=== PATIENT | male | born 1980 | race Caucasian/White ===

== ENCOUNTER 2019-06-17 14:42 | Emergency (ER) | payer BC, SELFPAY ==
[2019-06-17 15:35] VITALS: BP 134/83; PULSE 96; RESP 20; TEMP 36.8; O2SAT 99
--- NOTE | 2019-06-17 16:07 | ECG_ITS ---
Measurements Intervals [place] Rate: 79 P: 55 CA: 162 QRS: 43 QRSD: 94 T: 50 QT: 349 QTc: 401 Interpretive Statements SINUS RHYTHM NORMAL ECG Electronically Signed On 06-17-2019 17:35:45 FOOD SERVICE CASHIER by Camron Mari D.O.
--- NOTE | 2019-06-17 16:11 | ED.GENADULT ---
HPI - General Adult General Chief complaint: Chest Pain Stated complaint: cough and chest pain Time Seen by Provider: 06/17/19 16:04 Source: patient and RN notes reviewed Mode of arrival: ambulatory Limitations: no limitations History of Present Illness HPI narrative: Patient presents today complaining of left-sided chest pain x3-4 days. States symptoms occasionally radiate to the shoulder and sternum, but not consistently. Describes the pain as a dull ache. Denies any additional symptoms to include nausea, vomiting, sweats or chills, shortness of breath, numbness or tingling in the extremities, Abnormal swelling. Denies any modifying factors. He has tried no medication for symptoms prior to arrival. Reports strong familial history of ID, hypercholesterolemia, and CABG. States he was sick approximately 1 week ago with upper respiratory symptoms, but is no longer symptomatic.Pain does not increase with deep breath or movement. MD complaint: Chest pain Related Data Home Medications Medication Instructions Recorded Confirmed No Home Medications 06/17/19 06/17/19 Allergies Allergy/AdvReac Type Severity Reaction Status Date / Time No Known Allergies Allergy Verified 06/17/19 16:05 Review of Systems Review of Systems: Narrative: CONSTITUTIONAL: Denies body aches, fever, chills, or sweats. EYES: Denies visual changes, redness, or discharge. ENT: Denies rhinorrhea, congestion, sore throat, or otalgia. CARDIOVASCULAR: Denies palpitations, or edema.+Chest pain RESPIRATORY: Denies cough or dyspnea. GASTROINTESTINAL: Denies abdominal pain, nausea, vomiting, or diarrhea. GENITOURINARY: Denies dysuria or hematuria. SKIN: Denies rash, itching, or wounds. MUSCULOSKELETAL: Denies back pain, joint pain, or myalgia. NEUROLOGIC: Denies headache, numbness, tingling, or weakness. PSYCH: Denies depression or anxiety. [facility] Family History Family History (Updated 06/17/19 @ 16:13 by Collette Powell, [facility], ) Grandparent Acute myocardial infarction Grandparent Acute myocardial infarction Comments At time of signature, I have reviewed and agree with nursing past medical, surgical, social and family history unless otherwise noted. Please see nursing chart for further information. Exam Narrative: Exam Narrative: GENERAL: Well-appearing, well-nourished, and in no acute distress. HEAD: Normocephalic, atraumatic. EYES: EOMI. No redness or drainage. Conjunctivae normal. ENT: Mucous membranes pink and moist. NECK: Normal AROM. Supple. No lymphadenopathy. CHEST: No respiratory distress. Clear to auscultation.Chest is nontender. HEART: Regular rate and rhythm. No murmur appreciated. Normal peripheral pulses. ABDOMEN: Soft, nontender, nondistended, normal active bowel sounds. MUSCULOSKELETAL: No bony tenderness. EXTREMITIES: Normal range of motion. No edema. SKIN: Warm, dry, no rash. NEURO: No focal deficits. Alert and oriented x3. Gait steady. PSYCH: Normal affect. No signs of depression or anxiety. Course Vital Signs Vital signs: Vital Signs Temperature 98.2 F 06/17/19 15:35 Pulse Rate 96 06/17/19 15:35 Respiratory Rate 06/17/19 15:35 Blood Pressure 134/83 06/17/19 15:35 Pulse Oximetry 99 06/17/19 15:35 Temperature 98.2 F 06/17/19 15:35 Pulse Rate 96 06/17/19 15:35 Respiratory Rate 06/17/19 15:35 Blood Pressure 134/83 06/17/19 15:35 Pulse Oximetry 99 06/17/19 15:35 Reviewed Transfer Transfered to: Other ([facility]) Transportation: Other (Private vehicle) Transfer rationale: Chest pain Accepting physician: Teresa Medical Decision Making Differential Diagnosis Differential Diagnosis: ID, musculoskeletal chest pain, pleurisy, PE Vital Signs Vital Signs: Vital Signs Temperature 98.2 F 06/17/19 15:35 Pulse Rate 96 06/17/19 15:35 Respiratory Rate 06/17/19 15:35 Blood Pressure 134/83 06/17/19 15:35 Pulse Oximetry 99 06/17/19 15:35 [place]
== END 2019-06-17 16:22 | disposition short-term general hospital (02) ==
PROVIDERS: Emergency Provider Nurse Practitioner
DX: R07.9 Chest pain, unspecified (principal)
CPT/HCPCS: 93005; 99213; G0463

== ENCOUNTER 2019-06-18 19:20 | Emergency (ER) | payer BC, SELFPAY ==
--- NOTE | ~2019-06-18 | XR_ITS ---
EXAMINATION: XR chest 2V 06/18/2019 19:52 INDICATION: Left-sided chest pain. High heart rate for 3 days. PROCEDURE: 2 view chest COMPARISON: No prior studies for comparison. FINDINGS: The lungs are clear. The cardiomediastinal silhouette is within normal limits. There are no pleural effusions. There is no pneumothorax suspected. IMPRESSION: 1: NO ACUTE CARDIOPULMONARY DISEASE. Reviewed, dictated and finalized at location A. PULLER
[2019-06-18 19:23] VITALS: BP 145/97; PULSE 104; RESP 20; TEMP 36.7; O2SAT 100
--- NOTE | 2019-06-18 19:33 | ECG_ITS ---
Measurements Intervals [place] Rate: 102 P: 36 NC: 130 QRS: 28 QRSD: 95 T: 41 QT: 322 QTc: 419 Interpretive Statements SINUS TACHYCARDIA CANNOT RULE OUT SEPTAL INFARCT, AGE INDETERMINATE ABNORMAL ECG Electronically Signed On 06-18-2019 20:51:25 SEDIMENT REMEDIATION CONSULTANT by Camron Mari D.O.
[2019-06-18] MEDS: ASPIRIN 81 MG CHEWABLE TABLET 324 MG PO (19:43)
[2019-06-18 19:53] LABS: Basophils Absolute Auto 0.1 K/mm3 (0.0-0.1); Basophils Percent Auto 1.2 % (0.2-1.2); Eosinophils Absolute Auto 0.1 K/mm3 (0-0.3); Eosinophils Percent Auto 1.1 % (0-4.4); Hematocrit 47.2 % (42.0-52.0); Hemoglobin 15.5 g/dL (14.0-18.0); Immature Granulocyte Absolute 0.05 K/mm3 (0.00-0.031); Immature Granulocyte Percent A 0.5 % (0-0.5); Lymphocytes Absolute Auto 3.81 K/mm3 (0.9-3.2); Lymphocytes Percent Auto 38.2 % (18.3-44.2); Mean Corpuscular HGB Conc 32.8 g/dl (32-36); Mean Corpuscular Hemoglobin 27.6 pg (26-34); Mean Corpuscular Volume 84.1 fl (80-100); Mean Platelet Volume 10.2 fl (7.4-10.4); Monocytes Absolute Auto 0.7 K/mm3 (0.1-0.6); Monocytes Percent Auto 7.3 % (2.6-8.5); Neutrophils Absolute Auto 5.2 K/mm3 (1.3-6.7); Neutrophils Percent Auto 51.7 % (45.5-73.1); Platelet Count Result 350 k/mm3 (150-375); Red Blood Count 5.61 M/mm3 (4.6-6.20)
--- NOTE | 2019-06-18 20:00 | ED.CHESTPAIN ---
HPI - Chest Pain General Chief Complaint: Chest Pain Stated Complaint: chest pain Time Seen by Provider: 06/18/19 19:54 Source: patient Mode of arrival: ambulatory Limitations: no limitations History of Present Illness HPI narrative: A 38 y/o male presents to the ED with c/o left sided CP. Pt states that for the last 4 days he has had intermittent dull and achy chest pain. He notes that the CP is alleviated with activity, but denies any aggravating factors. [facility] - which was normal. At that urgent care appointment, he was advised to come to the ED for further evaluation. Today, the patient was standing at an event and notes that his watch alerted him that he had a high heart rate, so he decided to come to the ED. He denies any trouble with activity. Pt had a recent vasectomy, and is not released for heavy activity by his surgeon. He is a non-smoker. Pt denies N/V/D, SOB, and fever. complaint: chest pain (Left sided) Onset (ago): day(s) (4) Timing of current episode: episodic Pain location: left chest Quality: aching and dull Relieving factors: movement (Activity) Exacerbating factors: nothing Associated symptoms: other (None) Related Data Home Medications Medication Instructions Recorded Confirmed No Home Medications 06/17/19 06/17/19 Allergies Allergy/AdvReac Type Severity Reaction Status Date / Time No Known Allergies Allergy Verified 06/18/19 19:32 Review of Systems Review of Systems: All systems reviewed & are unremarkable except as noted in HPI and below Constitutional: Constitutional: Denies fever(s) Cardiovascular: Cardiovascular: Reports chest pain (Left sided) Respiratory: Respiratory: Denies dyspnea Gastrointestinal: Gastrointestinal: Denies diarrhea, Denies nausea and Denies vomiting [facility] Past Medical History Medical History (Updated 06/18/19 @ 23:46 by Roshan Greco MD) Ulcerative colitis Surgical History Surgical History (Updated 06/18/19 @ 20:34 by Amanda Mendieta) History of appendectomy History of vasectomy Family History Family History Grandparent Acute myocardial infarction Grandparent Acute myocardial infarction Social History Social History (Updated 02/18/20 @ 20:34 by Amanda Mendieta) Smoking status: Never smoker Exam Const: General: healthy appearing, no acute distress and well developed Nutritional Appearance: well nourished Orientation/consciousness: patient oriented x3 (alert) and Other orientation findings (Alert) Limitations: no limitations HENMT: Head: normocephalic and atraumatic Ears: external ears normal General nose exam: No nasal discharge present and no epistaxis Face and sinus: face symmetric Mouth: Yes lip normal, Yes tongue normal and Yes moist mucous membranes Throat: other (No exudate, no erythema) Eyes: Conjunctivae: conjunctivae normal Sclera: sclerae normal EOM: EOMs intact bilaterally Neck: Neck: full ROM, no lymphadenopathy and supple Thyroid: thyroid normal Chest: Chest palpation & inspection: no tenderness Resp: Effort & Inspection: normal respiratory effort Auscultation: clear to auscultation bilaterally, no rales, no rhonchi, no wheezes and other (breath sounds equal) Cardio: Rate: regular rate Rhythm: regular rhythm Heart sounds: no gallops and no murmurs GI: Inspection: non-distended GI Palp: No abdominal tenderness and Yes Soft to palpation Auscultation: other (bowel sounds present) : General: Yes no CVA tenderness Back/Spine/Pelvis: Back: no CVA tenderness Thoracic/Lumbar Spine: thoracic and lumbar spine normal to inspection Skin: General skin exam: normal color and no rashes or lesions noted Neuro: General: patient oriented x3 (alert), moves all extremities and no focal motor deficits Cranial nerves: Yes facial symmetry Speech: normal speech Motor exam (neuro): Motor abnormalities not present Extrem: Gen
[2019-06-18 20:03] LABS: Partial Thromboplastin Time 26.6 SECONDS (22.3-36.8); Prothrombin Time 13.1 Seconds (11.1-14.7)
[2019-06-18 20:27] LABS: Blood Urea Nitrogen 16 mg/dL (9-20); Calcium 9.2 mg/dL (8.4-10.2); Carbon Dioxide 23 mmol/L (22-30); Chloride 101 mmol/L (98-107); Estimated CRCL calculation 90 ml/min; Estimated Glomerular Filt Rate > 60; Glucose 86 mg/dL (75-110); Potassium 3.9 mmol/L (3.4-5.0); Sodium 140 mmol/L (137-145)
[2019-06-18 20:39] LABS: Troponin I < 0.012 ng/mL (0.000-0.034)
[2019-06-18 21:15] VITALS: BP 136/80; PULSE 78; RESP 15; O2SAT 100
[2019-06-18] MEDS: KETOROLAC 30 MG/ML VIAL (*BKC) IV PUSH (21:16)
[2019-06-18 22:33] VITALS: BP 125/92; PULSE 86; RESP 20; O2SAT 98
[2019-06-18 23:13] LABS: Troponin I < 0.012 ng/mL (0.000-0.034)
[2019-06-18 23:42] VITALS: BP 122/93; PULSE 77; RESP 19; O2SAT 97
[2019-06-19 00:02] VITALS: BP 122/93; PULSE 87; RESP 19; O2SAT 96
== END 2019-06-19 00:04 | disposition home or self-care (01) ==
PROVIDERS: General Practice; Emergency Provider Emergency Medicine
DX: R07.89 Other chest pain (principal); Z98.52 Vasectomy status; Z98.890 Other specified postprocedural states
CPT/HCPCS: 36415; 71046; 80048; 84484; 85025; 85610; 85730; 93005; 96374; 99284; A9270; J1885

== ENCOUNTER 2019-10-14 08:38 | Outpatient (CLI) | payer BC, SELFPAY ==
--- NOTE | ~2019-10-14 | XR_ITS ---
EXAMINATION: XR UGIAC w kub DATE: 10/14/2019 09:38 INDICATION: Gastroesophageal reflux disease. TECHNIQUE: The patient drank thick barium, gas-producing crystals, and thin barium. Fluoroscopy of th e esophagus, stomach, and proximal small bowel was performed. Fluoroscopy exposure time was 0.4 minut es. The total number of images was 214. Total dose-area product was 0.873 Gy-cm^2. COMPARISON: None. FINDINGS: There is no mass or stricture of the esophagus. Esophageal motility is normal. There is no hiatal hernia. There was no gastroesophageal reflux with provocative maneuvers. The stomach and proxi mal small bowel show normal folding patterns. IMPRESSION: 1. Normal upper gastrointestinal series. Reviewed, dictated and finalized at location A.
--- NOTE | ~2019-10-14 | XR_ITS ---
EXAMINATION: XR sternum min 2V DATE: 10/14/2019 09:24 INDICATION: Chest wall pain. TECHNIQUE: 2 views of the sternum were obtained. COMPARISON: None. FINDINGS: Bone alignment is normal. No fracture. IMPRESSION: 1. Normal sternum. Reviewed, dictated and finalized at location A. IMPRESSION: 1. Normal sternum.
--- NOTE | ~2019-10-14 | XR_ITS ---
EXAMINATION: XR ribs LT 2V DATE: 10/14/2019 09:24 INDICATION: Left chest pain. TECHNIQUE: 3 views of the left ribs were obtained. COMPARISON: Chest 2 views 06/18/2019 FINDINGS: There is no left-sided pneumonia, pleural effusion, or pneumothorax. The heart size is norm al. Surgical clips in the right upper quadrant are likely from cholecystectomy. IMPRESSION: 1. No rib fracture. Reviewed, dictated and finalized at location A. IMPRESSION: 1. No rib fracture.
== END 2019-10-14 08:39 | disposition home or self-care (01) ==
LOC: ANHIMG 08:42
PROVIDERS: PCP Physician Assistant; Visit Provider Physician Assistant
DX: K21.9 Gastro-esophageal reflux disease without esophagitis (principal); R07.89 Other chest pain
CPT/HCPCS: 71100; 71120; 74246

== ENCOUNTER → 2020-03-18 11:40 | Outpatient (CLI) | payer BC, SELFPAY ==
--- NOTE | ~2020-03-18 | XR_ITS ---
EXAMINATION: XR chest 2V EXAM DATE: 03/18/2020 12:04 INDICATION: Chest pain located towards the LT side of chest for 1 year with an On/Off dry cough. Nons moker. TECHNIQUE: Frontal and lateral projections of the chest obtained and reviewed. Comparison is made to prior examination from 10/14/2019. FINDINGS: The lungs are clear. There are no pleural effusions. The cardiomediastinal silhouette is within normal limits. There is no pneumothorax suspected. The bones and soft tissues are unremarkab le. IMPRESSION: Normal chest x-ray exam. Reviewed, dictated and finalized at location A. STEWARD IMPRESSION: Normal chest x-ray exam.
--- NOTE | ~2020-03-18 | CT_ITS ---
EXAMINATION: CT chest w con EXAM DATE: 03/18/2020 12:23 INDICATION: Atypical chest pain. Cough. TECHNIQUE: Spiral CT of the chest following intravenous injection of 75 mL Omnipaque 350. Axial, cor onal and sagittal images were reviewed. Coronal maximum intensity pixel images of chest reviewed. T del dose-length product (DLP) for this examination was 271.51 mGy-cm. The exposure was tailored accor ding to patient size (auto mA exposure control), and iterative reconstruction (ASIR) was used as jenise tional dose reduction technique. There is no prior study for comparison. FINDINGS: The lungs are clear. No central pulmonary emboli. There are no pleural or pericardial effu sions. Tracheobronchial tree is patent. There is no mediastinal, hilar or axillary lymphadenopath y. There is no pneumothorax. Heart normal in size. No evidence of coronary arterial calcificati on. There are cholecystectomy clips. The bones are unremarkable. IMPRESSION: Unremarkable CT chest exam. Reviewed, dictated and finalized at location A. WASHER IMPRESSION: Unremarkable CT chest exam.
== END ==
PROVIDERS: PCP Physician Assistant; Visit Provider Physician Assistant
DX: R07.89 Other chest pain (principal)
CPT/HCPCS: 71046; 71260; Q9967

== ENCOUNTER 2020-03-31 07:34 | Outpatient (CLI) | payer BC, SELFPAY ==
--- NOTE | 2020-03-31 | ECHO_ITS ---
Patient Info Name: Osmar Arthur Age: 39 years : 1980 Gender: Male Ht: 73 in Wt: 185 lbs BSA: 2.08 m2 HR: 65 bpm BP: 136 / 97 mmHg Heart Rhythm: Sinus Rhythm Technical Quality: Good Exam Date: 03/31/2020 8:26 AM Exam Location: [facility] Pulmonary Patient Status: Outpatient Admit Date: 03/31/2020 Staff Ordering Physician: SamanthaErnestina PA-C Electric Motorman: Samuel Dailey RDCS Attending Provider: BradenErnestina PA-C Exam Type: CA echo doppler color flow Study Info Indications R07.9 - Chest pain, unspecified Complete two-dimensional, color flow and Doppler transthoracic echocardiogram is performed. Strain analysis performed. History/Risk Factors Chest pain. Summary 1. Left ventricular systolic function is normal, estimated at 55-60%. 2. There is no aortic valve stenosis. 3. There is trace mitral valve regurgitation. 4. There is trace tricuspid valve regurgitation. 5. Unable to estimate PA systolic pressure due to poor spectral resolution of tricuspid regurgitant jet velocity. Left Ventricle Left ventricular chamber dimension is normal. Left ventricular systolic function is normal, estimated at 55-60%. There is no increased left ventricular wall thickness. The left ventricular diastolic function is normal. Right Ventricle Right ventricular chamber dimension is normal. Right ventricular systolic function is normal. Left Atria Left atrial chamber dimension is normal. Right Atria Right atrial chamber dimension is normal. Aortic Valve The aortic valve is trileaflet. There is no aortic valve stenosis. There is no aortic valve regurgitation. Pulmonic Valve The pulmonic valve is not well visualized. Mitral Valve The mitral valve has normal leaflets. There is trace mitral valve regurgitation. Tricuspid Valve The tricuspid valve leaflets are normal. There is trace tricuspid valve regurgitation. Unable to estimate PA systolic pressure due to poor spectral resolution of tricuspid regurgitant jet velocity. Pericardium/Pleural The pericardium appears normal. There is no pericardial effusion. Aorta The aortic root size at the sinus of Valsalva is normal. Left Ventricular Outflow Tract Name Value Normal LVOT 2D LVOT Diameter 2.0 cm LVOT Doppler LVOT Peak Gradient 4 mmHg LVOT Mean Gradient 2 mmHg LVOT VTI 19 cm LVOT VTI/AV VTI Ratio 0.9 LVOT Stroke Volume 63 ml LVOT CO 4.4 l/min LVOT CI 2.1 l/min/m2 Mitral Valve Name Value Normal MV Doppler MV Decel [place] 332 cm/s2 MV PHT 71 ms MV Area (PHT) 3
--- NOTE | 2020-03-31 | EST_ITS ---
Patient Info Name: Osmar Arthur Age: 39 years : 1980 Gender: Male Ht: 73 in Wt: 185 lbs BSA: 2.08 m2 Heart Rhythm: Sinus Rhythm Exam Date: 03/31/2020 8:57 AM Exam Location: [facility] Stress Patient Status: Outpatient Admit Date: 03/31/2020 Staff Ordering Physician: SamanthaErnestina PA-C Attending Provider: SamanthaErnestina PA-C Exercise Technologist: Ramila Stearns RDCS Exam Type: CA stress test treadmill Study Info Indications R07.89 - Other chest pain A treadmill exercise stress test was performed. Summary 1. No abnormal ST/T wave changes with exercise. 2. No arrhythmias were observed during the examination. 3. Maximal treadmill stress EKG study achieving 108% of age predicted maximum heart rate and 13.3 METS at peak exercise. 4. No stress-induced chest pain. 5. Above average exercise capacity for age. Protocol: [facility] Stress ECG Details Stage: REST Duration (min): 7 min : 56 sec Speed (mph): 0.0 Grade (%): 0 HR (bpm): 69 SBP (mmHg): 135 DBP (mmHg): 92 METS: --- Stage: REST Duration (min): 17 min : 42 sec Speed (mph): 0.0 Grade (%): 0 HR (bpm): 81 SBP (mmHg): 135 DBP (mmHg): 92 METS: --- Stage: STAGE 1 Duration (min): 1 min : 0 sec Speed (mph): 1.7 Grade (%): 10 HR (bpm): 107 SBP (mmHg): 135 DBP (mmHg): 92 METS: --- Stage: STAGE 1 Duration (min): 2 min : 0 sec Speed (mph): 1.7 Grade (%): 10 HR (bpm): 117 SBP (mmHg): 135 DBP (mmHg): 92 METS: --- Stage: STAGE 1 Duration (min): 3 min : 0 sec Speed (mph): 1.7 Grade (%): 10 HR (bpm): 115 SBP (mmHg): 137 DBP (mmHg): 67 METS: --- Stage: STAGE 2 Duration (min): 1 min : 0 sec Speed (mph): 2.5 Grade (%): 12 HR (bpm): 127 SBP (mmHg): 137 DBP (mmHg): 67 METS: --- Stage: STAGE 2 Duration (min): 2 min : 0 sec Speed (mph): 2.5 Grade (%): 12 HR (bpm): 129 SBP (mmHg): 135 DBP (mmHg): 65 METS: --- Stage: STAGE 2 Duration (min): 3 min : 0 sec Speed (mph): 2.5 Grade (%): 12 HR (bpm): 126 SBP (mmHg): 135 DBP (mmHg): 65 METS: --- Stage: STAGE 3 Duration (min): 1 min : 0 sec Speed (mph): 3.4 Grade (%): 14 HR (bpm): 145 SBP (mmHg): 149 DBP (mmHg): 66 METS: --- Stage: STAGE 3 Duration (min): 2 min : 0 sec Speed (mph): 3.4 Grade (%): 14 HR (bpm): 153 SBP (mmHg): 149 DBP (mmHg): 66 METS: --- Stage: STAGE 3 Duration (min): 3 min : 0 sec Speed (mph): 3.4 Grade (%): 14 HR (bpm): 154 SBP (mmHg): 164 DBP (mmHg): 71 METS: --- Stage: STAGE 4 Duration (min): 1 min : 0 sec Speed (mph): 4.2 Grade (%): 16 HR (bpm): 171 SBP (mmHg): 164 DBP (mmHg): 71 METS: --- Stage: STAGE 4 Duration (min): 2 min : 0 sec Speed (mph): 4.2 Grade (%): 16 HR (bpm)
== END 2020-03-31 07:35 | disposition home or self-care (01) ==
PROVIDERS: PCP Physician Assistant; Visit Provider Physician Assistant
DX: R07.89 Other chest pain (principal)
CPT/HCPCS: 93017; 93306

== ENCOUNTER 2020-04-17 07:32 | Outpatient (CLI) | payer BC, SELFPAY ==
--- NOTE | 2020-08-24 09:14 | WPDPFTINT ---
PFT Interpretation DOS: 04/17/2020 REQUESTING: Ernestina Singh PA-C REASON FOR TESTING: cough PULMONARY FUNCTION TESTS Results are reliable and reproducible. Spirometry: the FEV1 is 115%, 4.75 L. FVC is 112%. The FEV1/ FVC ratio is normal. There is no change with bronchodilator. Lung volumes: The total lung capacity is 108% normal. Vital capacity 113%. Residual volume 89%. There is no air trapping. Airway resistance is normal. Diffusion: DLCO 109% normal. Flow volume loop: Unremarkable. IMPRESSION: Normal spirometry with bronchodilator, lung volumes and diffusion capacity. No apparent cause for patinet's complaints. Amena Adames MD PFT Procedure Performed PFT Procedure Performed Spirometry with Pre/Post Bronchodilator Plethysmography (Lung Vol) Diffusing Cap (DLCO) Flow Vol Loop
== END 2020-04-17 07:33 | disposition home or self-care (01) ==
PROVIDERS: PCP Physician Assistant; Visit Provider Physician Assistant
DX: R05 Cough (principal)
CPT/HCPCS: 94060; 94726; 94729

== ENCOUNTER 2021-07-13 18:47 | Emergency (ER) | payer OTHER, SELFPAY ==
--- NOTE | ~2021-07-13 | US_ITS ---
US scrotum doppler DATE: 07/13/2021 20:40 INDICATION: Scrotal pain TECHNIQUE: Real-time and color flow imaging and Doppler analysis of the scrotal contents COMPARISON: None FINDINGS: The right testicle measures 4.7 x 3.0 x 1.8 cm. The left testicle measures 4.7 x 2.7 x 1.9 cm. No testicular mass lesion or torsion. 2.3 mm right epididymal head cyst. No hydrocele or varicocele. IMPRESSION: No evidence of testicular torsion or mass lesion Reviewed, dictated and finalized at Location A. Reviewed, dictated and finalized at location A.
[2021-07-13 18:55] VITALS: BP 129/91; PULSE 78; RESP 18; TEMP 36.6; O2SAT 100
--- NOTE | 2021-07-13 19:25 | ED.MALEGU ---
HPI - Male Genitourinary General Chief complaint: Urogenital-Male Stated complaint: Right Testicular Pain Time Seen by Provider: 07/13/21 19:04 Source: patient History of Present Illness HPI Narrative: Patient presents with right-sided testicular pain. Reports been intermittent for the past 3 to 4 days describes an achy sensation that starts in the testicle and radiates up to his right groin is unable to identify any clear aggravating or alleviating factors he denies any trauma to the area denies any pain with urination denies any ulcerations edema or urethral discharge. Reports he has had a vasectomy and his pain feels somewhat similar to his postop pain. Related Data Home Medications Medication Instructions Recorded Confirmed No Home Medications 06/17/19 06/17/19 Allergies Allergy/AdvReac Type Severity Reaction Status Date / Time No Known Allergies Allergy Verified 07/13/21 18:59 Review of Systems Review of Systems: CONSTITUTIONAL: Denies fever, chills, or sweats. EYES: Denies visual changes, redness, or discharge. ENT: Denies rhinorrhea, congestion, sore throat, or otalgia. CARDIOVASCULAR: Denies chest pain, palpitations, or edema. RESPIRATORY: Denies cough or dyspnea. GASTROINTESTINAL: Denies abdominal pain, vomiting, or diarrhea. GENITOURINARY: Denies dysuria or hematuria. SKIN: Denies rash or itching. MUSCULOSKELETAL: Denies back pain, joint pain, or myalgia. NEUROLOGIC: Denies headache, numbness, dizziness, or weakness. PSYCHIATRIC: Denies anxiety or depression. All systems reviewed & are unremarkable except as noted in HPI and below PMFSH Past Medical History Medical History Ulcerative colitis Surgical History Surgical History History of appendectomy History of vasectomy Family History Family History Grandparent Acute myocardial infarction Grandparent Acute myocardial infarction Social History Social History Smoking status: Never smoker Exam Narrative: GENERAL: Well-appearing, well-nourished, and in no acute distress. HEAD: Normocephalic, atraumatic. EYES: PERRLA and EOMI. ENT: Nares clear, no rhinorrhea or epistaxis. Mucous membranes moist. NECK: Supple. No masses. No JVD ABDOMEN: Soft, nontender, nondistended, normal active bowel sounds. : Normal lie of the testicles cremasteric is intact tenderness and fullness to the spermatic cord on the right EXTREMITIES: Normal range of motion. No edema. SKIN: Warm, dry, no rash. NEURO: No focal deficits. Alert and oriented x3. PSYCH: Normal mood and affect. Course Reevaluation(s) Reevaluation #1: Patient resting comfortably results and plan reviewed with patient. Patient comfortable outpatient plan. Date: 07/13/21 Time: 21:10 Vital Signs Vital signs: Vital Signs Temperature 36.6 C 07/13/21 18:55 Pulse Rate 78 07/13/21 18:55 Respiratory Rate 18 07/13/21 18:55 Blood Pressure 129/91 H 07/13/21 18:55 Pulse Oximetry 100 07/13/21 18:55 Temperature 36.6 C 07/13/21 18:55 Pulse Rate 74 07/13/21 21:23 Respiratory Rate 15 07/13/21 21:23 Blood Pressure 124/71 07/13/21 21:23 Pulse Oximetry 99 07/13/21 21:23 MDM - Male Genitourinary MDM Narrative Medical decision making narrative: H&P as above, vss, pt looks clinically well, exam minimal tenderness with palpation of the spermatic cord, imaging without acute process, additional labs/img considered, symptomatic relief available as needed, on reevaluation pt continues to looks clinically well. Pain remains of unclear etiology may be scar tissue irritation from his prior vasectomy versus irritation of his epididymal cyst, dns torsion mass hernia. plan to tx/monitor as op w/ pcm f/u findings/plan discussed with pt, pt agree/comfortable with plan, retu
--- NOTE | 2021-07-13 20:05 | PC.NURSE ---
Pt states he is unable to provide urine specimen at this time, provided cup of water and urine cup. Instructed to provide sample as soon as he's able. Pt being wheeled to US at this time.
[2021-07-13 21:08] LABS: Add Urine Microscopic? NO; Appearance Urine Clear (Clear); Bilirubin Urine Negative (Negative); Blood Urine Negative (Negative); Color Urine Straw (Yellow); Glucose Urine UA Negative (Negative); Ketones Urine Negative (Negative); Leukocyte Esterase Ur Negative LEU/UL (Negative); Nitrate Urine Negative (Negative); Protein Urine Negative (Negative); Specific Grav Ur 1.013 (1.001-1.035); Urobilinogen Urine Negative mg/dL (<2.0)
[2021-07-13 21:23] VITALS: BP 124/71; PULSE 74; RESP 15; O2SAT 99
== END 2021-07-13 21:24 | disposition home or self-care (01) ==
PROVIDERS: Emergency Provider Emergency Medicine; PCP Physician Assistant
DX: N50.3 Cyst of epididymis (principal); K51.90 Ulcerative colitis, unspecified, without complications
CPT/HCPCS: 76870; 81003; 87491; 87591; 93976; 99283; 99284

== ENCOUNTER → 2022-06-28 07:49 | Outpatient (CLI) | payer OTHER, SELFPAY ==
--- NOTE | ~2022-06-28 | XR_ITS ---
XR knee LT min 4V 06/28/2022 08:07 INDICATION: Left knee pain PROCEDURE: 4 views left knee COMPARISON: No prior studies for comparison. FINDINGS: Fracture, dislocation or subluxation is not identified. The soft tissues appear within norm al limits. No foreign bodies are identified. IMPRESSION: 1: NO ACUTE BONE OR JOINT ABNORMALITY IDENTIFIED. Reviewed, dictated and finalized at location D. TENANCE SPECIALIST
== END ==
PROVIDERS: PCP Physician Assistant; Visit Provider Physician Assistant
DX: M25.562 Pain in left knee (principal)
CPT/HCPCS: 73564

== ENCOUNTER → 2022-11-12 07:26 | Outpatient (CLI) | payer OTHER, SELFPAY ==
--- NOTE | ~2022-11-12 | XR_ITS ---
XR abdomen/kub 1V DATE: 11/12/2022 09:00 INDICATION: Right abdominal pain TECHNIQUE: Supine AP views COMPARISON: 11/12/2022 abdominal ultrasound examination FINDINGS: Surgical clips overlie the right upper quadrant, consistent with cholecystectomy. No visceromegaly is evident. The psoas shadows are intact. No bowel obstruction is noted. The lung bases are clear. Heart size appears normal. Included skeletal structures are unremarkable. IMPRESSION: Status post cholecystectomy; nonspecific abdomen Reviewed, dictated and finalized at Location A. Reviewed, dictated and finalized at location A.
--- NOTE | ~2022-11-12 | US_ITS ---
EXAMINATION: US abdomen complete DATE: 11/12/2022 08:07 INDICATION: Right abdominal pain. TECHNIQUE: Multiple grayscale and Doppler ultrasound images of the abdomen were obtained. COMPARISON: CT abdomen 03/18/2020 FINDINGS: Abdominal aorta is normal in caliber. Inferior vena cava is normal. The visualized portions of the head and body of the pancreas are normal. The liver is normal without focal lesion. No liver surface nodularity. There is normal flow in portal vein. The gallbladder is absent. The common duct i s normal and measures 4 mm. The kidneys are normal in size. The spleen is normal in size. IMPRESSION: 1. Normal complete abdomen ultrasound status post cholecystectomy. Reviewed, dictated and finalized at location E.
--- NOTE | ~2022-11-12 | XR_ITS ---
EXAMINATION: [id number] DATE: 11/12/2022 09:00 INDICATION: Right flank pain. Pleurodynia. TECHNIQUE: A frontal view of the chest and 2 views on 3 radiographs of the right ribs were obtained. COMPARISON: Chest CT 03/18/2020, chest 2 views 06/18/2019 FINDINGS: The chest demonstrates clear lungs without pneumonia, pleural effusion, or pneumothorax. Th e heart size is normal. Surgical clips in the right upper quadrant are likely from cholecystectomy. IMPRESSION: 1. No rib fracture. Reviewed, dictated and finalized at location E. IMPRESSION: 1. No rib fracture.
== END ==
PROVIDERS: PCP Physician Assistant; Visit Provider Physician Assistant
DX: R10.9 Unspecified abdominal pain (principal); R07.81 Pleurodynia; Z90.49 Acquired absence of other specified parts of digestive tract
CPT/HCPCS: 71101; 74018; 76700

== ENCOUNTER 2022-11-30 06:52 | Outpatient (CLI) | payer OTHER, SELFPAY ==
--- NOTE | ~2022-11-30 | CT_ITS ---
Non-contrast CT scan of the Abdomen and Pelvis Clinical indication: Right flank pain Technique: 2.5 mm axial scans were obtained through the abdomen and pelvis without intravenous or or al contrast. Dose reduction technique was used on this scan by utilizing automated exposure control a nd iterative reconstruction technique. The dose-length product (DLP) was 725.57 mGy-cm. Findings: Images through the lung bases reveal no abnormalities. There is no evidence of renal or ureteral calculi. The kidneys and the ureters are nondilated. The liver, spleen, pancreas, and adrenals appear normal. Cholecystectomy clips are present. There is no aortic aneurysm. There is no evidence of bowel obstruction. No right lower quadrant inflammatory changes are identifie d. Images through the pelvis were performed. There is no evidence of ascites or lymphadenopathy. Urinary bladder unremarkable. Prostate gland and seminal vesicles are unremarkable. There are bilateral L5 p ars interarticularis defects, severe degenerative disc narrowing at L5-S1, and 7 mm anterolisthesis o f L5 over S1. Impression: No acute abnormality. Bilateral L5 pars interarticularis defects, with 7 mm anterolisthesis of L5 over S1. Reviewed, dictated and finalized at location . Impression: No acute abnormality. Bilateral L5 pars interarticularis defects, with 7 mm anterolisthesis of L5 ove r S1.
== END 2022-11-30 06:53 | disposition home or self-care (01) ==
PROVIDERS: PCP Physician Assistant; Visit Provider Physician Assistant
DX: R10.9 Unspecified abdominal pain (principal); M43.17 Spondylolisthesis, lumbosacral region
CPT/HCPCS: 74176